=== PATIENT | male | born 1950 ===

== ENCOUNTER 2019-09-01 20:55 | Observation (INO) ==
[2019-09-01] MEDS ORDERED: Nitroglycerin 0.4 MG TAB.SUBL SL PRN (21:39)
[2019-09-01 22:14] LABS: Basophils % 0.6 %; Eosinophils # 0.2 K/mcL (0.0-0.6); Eosinophils % 4.2 %; Hematocrit 40.4 % (37.5-50.1); Hemoglobin 14.8 g/dL (12.9-16.9); Immature Granulocytes % 0.2 % (0-4); Lymphocytes # 2.2 K/mcL (0.6-4.6); Lymphocytes % 41.4 %; Mean Corpuscular HGB Conc 36.6 g/dL (31.6-35.5); Mean Corpuscular Hemoglobin 32.2 pg (28.0-33.3); Mean Corpuscular Volume 87.8 fL (83.0-100.0); Mean Platelet Volume 8.8 fL (9.4-12.4); Monocytes # 0.7 K/mcL (0.0-1.3); Neutrophils # 2.1 K/mcL (1.6-8.9); Platelet Count 159 K/mcL (140-400); Red Cell Distribution Width 11.9 % (11.5-14.5); Segmented Neutrophils % 39.6 %; White Blood Count 5.3 K/mcL (4.3-11.1)
[2019-09-01 22:18] LABS: BUN/Creatinine Ratio 12 (6-26); Blood Urea Nitrogen 12 mg/dL (8-23); Calcium 9.9 mg/dL (8.6-10.3); Carbon Dioxide 24 mEq/L (23-29); Chloride 101 mEq/L (98-107); Glucose 110 mg/dL (70-105); Osmolality,Calculated 278 (280-300); Potassium 3.8 mEq/L (3.5-5.1); Sodium 134 mEq/L (136-145); Troponin I < 0.03 ng/mL (< 0.04); eGFR For African Americans > 60 (> 60); eGFR For Non-African Americans > 60 (> 60)
[2019-09-02] MEDS ORDERED: Naloxone 0.4 MG/ML INJ IVP PRN (02:35)
[2019-09-02] MEDS ORDERED: Morphine Sulfate 2 MG/ML SYRINGE IVP PRN (02:35)
[2019-09-02] MEDS ORDERED: Lisinopril 20 MG TABLET PO ONE (02:38)
[2019-09-02] MEDS ORDERED: *HR* Labetalol 20 MG/4 ML SYRINGE IVP PRN (02:39)
[2019-09-02 05:04] LABS: Bilirubin,Urine Negative (Negative); Blood,Urine Negative (Negative); Clarity,Urine Clear (Clear); Color,Urine Yellow (Yellow); Glucose,Urine (UA) Normal (Normal); Ketones,Urine Negative (Negative); Leukocyte Esterase,Urine Negative (Negative); Nitrite,Urine Negative (Negative); Protein,Urine Negative (Neg-Trace); Specific Gravity,Urine 1.013 (1.010-1.025); Urobilinogen,Urine Normal (Normal)
[2019-09-02 05:14] LABS: Amphetamine Screen,Urine Negative ng/mL (Cutoff=1000); Barbiturate Screen,Urine Negative ng/mL (Cutoff=200); Benzodiazepines Screen,Urine Negative ng/mL (Cutoff=200); Cannabinoid Screen,Urine Negative ng/mL (Cutoff = 50); Cocaine Screen,Urine Negative ng/mL (Cutoff= 300); Opiate Screen,Urine Positive ng/mL (Cutoff=300); Phencyclidine Screen,Urine Negative ng/mL (Cutoff=25)
[2019-09-02 05:31] LABS: Prothrombin Time 11.9 Seconds (9.4-12.1)
[2019-09-02 05:40] LABS: Alanine Aminotransferase 20 Units/L (7-52); Albumin 4.2 g/dL (3.5-5.7); Albumin/Globulin Ratio 1.6 (1.1-2.2); Alkaline Phosphatase 58 Units/L (34-104); Aspartate Amino Transferase 19 Units/L (13-39); BUN/Creatinine Ratio 11 (6-26); Bilirubin,Total 0.6 mg/dL (0.3-1.0); Blood Urea Nitrogen 12 mg/dL (8-23); Calcium 9.8 mg/dL (8.6-10.3); Carbon Dioxide 27 mEq/L (23-29); Chloride 102 mEq/L (98-107); Chol/HDL Ratio 4.2 (0-4.9); Cholesterol 169 mg/dL (< 200); Globulin 2.7 g/dL (2.4-3.5); Glucose 116 mg/dL (70-105); HDL Cholesterol 40 mg/dL (40-59); LDL Cholesterol,Calculated 89 mg/dL (0-99); Magnesium 1.9 mg/dL (1.6-2.6); Osmolality,Calculated 287 (280-300); Phosphorous 3.5 mg/dL (2.7-4.5); Potassium 3.9 mEq/L (3.5-5.1); Sodium 138 mEq/L (136-145); Total Protein 6.9 g/dL (6.4-8.9); Triglycerides 201 mg/dL (< 150); eGFR For African Americans > 60 (> 60); eGFR For Non-African Americans > 60 (> 60)
[2019-09-02 05:56] LABS: Basophils % 0.6 %; Eosinophils # 0.2 K/mcL (0.0-0.6); Eosinophils % 3.7 %; Hematocrit 40.8 % (37.5-50.1); Hemoglobin 15.2 g/dL (12.9-16.9); Immature Granulocytes % 0.4 % (0-4); Lymphocytes # 2.1 K/mcL (0.6-4.6); Lymphocytes % 39.4 %; Mean Corpuscular Hemoglobin 31.9 pg (28.0-33.3); Mean Corpuscular Volume 85.5 fL (83.0-100.0); Mean Platelet Volume 8.9 fL (9.4-12.4); Monocytes # 0.6 K/mcL (0.0-1.3); Monocytes % 10.6 %; Neutrophils # 2.5 K/mcL (1.6-8.9); Platelet Count 153 K/mcL (140-400); Red Blood Count 4.77 M/mcL (4.19-5.50); Segmented Neutrophils % 45.3 %; White Blood Count 5.4 K/mcL (4.3-11.1)
[2019-09-02 05:58] LABS: Mean Corpuscular HGB Conc 37.3 g/dL (31.6-35.5)
[2019-09-02] MEDS ORDERED: *HR* Acetaminophen w/Cod 300-30 mg 1 TAB TABLET PO PRN (08:21)
[2019-09-02] MEDS ORDERED: Nitroglycerin 0.4 MG TAB.SUBL SL PRN (08:21)
[2019-09-02] MEDS ORDERED: Fluticasone Propionate Nasal 50 MCG/SPRAY BOTTLE NS PRN (08:21)
[2019-09-02] MEDS ORDERED: Loratadine 10 MG TABLET PO SCH ×2 (09:00→20:00)
[2019-09-02] MEDS ORDERED: NON-FORMULARY MEDICATION 1 EACH EACH (Omega-3/Dha/Epa/Fish Oil [Fish Oil 1,000 Mg Softgel] PO SCH (09:00)
[2019-09-02] MEDS ORDERED: SALSALATE PO SCH (09:00)
[2019-09-02] MEDS ORDERED: Psyllium 1 PACKET POWD.PACK PO SCH ×2 (09:00→20:00)
[2019-09-02] MEDS: Isosorbide MONOnitrate (24 HR) 30 MG TAB.ER.24H PO SCH (09:55)
[2019-09-02] MEDS: Aspirin Enteric Coated 81 MG Tablet PO SCH (09:55)
[2019-09-02] MEDS: Methocarbamol 750 MG TABLET PO SCH ×4 (09:55→21:47)
[2019-09-02] MEDS: Famotidine 20 MG TABLET PO SCH ×2 (10:00→17:45)
[2019-09-03] MEDS: Famotidine 20 MG TABLET PO SCH (06:41)
[2019-09-03 08:08] VITALS: BP 143/75
[2019-09-03] MEDS: Methocarbamol 750 MG TABLET PO SCH (08:59)
[2019-09-03] MEDS: Isosorbide MONOnitrate (24 HR) 30 MG TAB.ER.24H PO SCH (09:00)
[2019-09-03] MEDS: Aspirin Enteric Coated 81 MG Tablet PO SCH (09:00)
== END 2019-09-03 10:25 | disposition home or self-care (01) ==
LOC: 3BNU 20:55 → EMEROOARM 20:55 → 3BNU 09-02 00:02
PROVIDERS: ADMIT Internal Medicine; ATTEND Internal Medicine